=== PATIENT | female | born 1960 | race Caucasian/White ===

== ENCOUNTER 2020-10-20 11:43 | Emergency (ER) | payer BC ==
[~2020-10-20] VITALS: Ht 170.2 cm; Wt 60.0 kg
[~2020-10-20 11:43] MED LIST: CLIN-97 PO; HYDR-4383 PO; LEVO100T PO
[2020-10-20 12:41] VITALS: BP 132/89
[2020-10-20] MEDS ORDERED: AMOX-422 PO (13:20)
== END 2020-10-20 13:36 | disposition home or self-care (01) ==
LOC: ER 11:44
DX: J32.9 Chronic sinusitis, unspecified (principal); R05 Cough; R06.02 Shortness of breath; R09.89 Other specified symptoms and signs involving the circulatory and respiratory systems; Z20.828 Contact with and (suspected) exposure to other viral communicable diseases; E03.9 Hypothyroidism, unspecified; Z90.710 Acquired absence of both cervix and uterus; Z88.2 Allergy status to sulfonamides; Z88.5 Allergy status to narcotic agent; Z79.2 Long term (current) use of antibiotics; Z79.899 Other long term (current) drug therapy
CPT/HCPCS: 36415; 71045; 87635; 99284

== ENCOUNTER 2020-10-25 18:42 | Emergency (ER) | payer BC ==
[~2020-10-25] VITALS: Ht 170.2 cm; Wt 59.8 kg
[~2020-10-25 18:42] MED LIST changes: +AMOX-422 PO
[2020-10-25 19:51] VITALS: BP 152/103
[2020-10-25 20:28] LABS: EOSINOPHILS % (AUTO) 0.8 % (0-6); HEMATOCRIT 40.2 % (35.0-45.0); HEMOGLOBIN 13.9 g/dl (12.0-16.0); LYMPHOCYTES # (AUTO) 1.3 X10'3 (1.1-4.8); LYMPHOCYTES % (AUTO) 39.2 % (21-51); MEAN CORPUSCULAR HEMOGLOBIN 32.5 PG (27.0-31.0); MEAN CORPUSCULAR HGB CONC 34.6 g/dL (33.0-36.5); MEAN CORPUSCULAR VOLUME 93.9 FL (78-98); MEAN PLATELET VOLUME 7.3 FL (7.4-10.4); MONOCYTES # (AUTO) 0.3 X10'3 (0-0.9); MONOCYTES % (AUTO) 9.5 % (2-12); NEUTROPHILS # (AUTO) 1.7 X10'3 (1.8-7.7); NEUTROPHILS % (AUTO) 49.5 % (42-75); PLATELET COUNT 216 X10'3 (140-440); RED BLOOD COUNT 4.28 X10'6 (4.20-5.60); RED CELL DISTRIBUTION WIDTH 16.5 % (11.5-14.5); WHITE BLOOD COUNT 3.4 X10'3 (4.5-11.0)
[2020-10-25] MEDS ORDERED: BENZ-16 PO (20:33)
[2020-10-25] MEDS ORDERED: benzonatate 100mg capsule PO ONE (20:35)
[2020-10-25] MEDS: pseudoephedrine 30mg tablet PO ONE ×2 (20:36→20:40)
[2020-10-25 20:41] LABS: ANION GAP 8 (8-16); CHLORIDE 109 MMOL/L (99-107); GLUCOSE 110 MG/DL (70-104); POTASSIUM 3.1 MMOL/L (3.5-5.1); SODIUM 145 MMOL/L (135-145); TOTAL CARBON DIOXIDE 27.8 MMOL/L (24-32)
[2020-10-25 20:42] LABS: ALANINE AMINOTRANSFERASE 26 U/L (12-78); ALBUMIN 3.6 G/DL (3.4-5.0); ALBUMIN/GLOBULIN RATIO 1.3 (1.1-1.5); ALKALINE PHOSPHATASE 57 IU/L (46-116); ASPARTATE AMINO TRANSFERASE 25 U/L (10-37); BILIRUBIN,TOTAL 0.5 MG/DL (0.1-1.0); BLOOD UREA NITROGEN 14 MG/DL (7-18); BUN/CREATININE RATIO 22.2 (6.6-38.0); CALCIUM 8.5 MG/DL (8.5-10.1); CREATININE 0.63 MG/DL (0.40-0.90); TOTAL PROTEIN 6.3 G/DL (6.4-8.2); eGFR > 90 ML/MIN
== END 2020-10-25 20:45 | disposition home or self-care (01) ==
LOC: ER 18:46
DX: R07.89 Other chest pain (principal); R05 Cough; E07.89 Other specified disorders of thyroid; Z88.5 Allergy status to narcotic agent; Z88.1 Allergy status to other antibiotic agents
CPT/HCPCS: 36415; 71046; 80053; 83880; 84484; 85025; 93005; 99285

== ENCOUNTER 2025-04-09 06:05 | Observation (INO) | payer MEDICARE, OTHER ==
--- NOTE | 2025-04-01 13:37 | ELECTROCARDIOGRAPH REPORT ---
[facility] Test Date: 2025-04-01 Test Time: 13:34:38 Pat Name: BROOK DORSEY Department: [facility]-PRE-OP Patient ID: [id number] Room: Gender: F [employer]: HUBER : 1960 Requested By: WILLIAM RIVERA Order Number: [id number] Reading MD: Dr. Shiloh Eisenberg Measurements Intervals [place] Rate: 47 P: 77 RI: 178 QRS: 69 QRSD: 110 T: 62 QT: 465 QTc: 411 Interpretive Statements Sinus bradycardia Atrial premature complex Right atrial enlargement Consider right ventricular hypertrophy Electronically Signed On 04-02-2025 9:07:[address] Shiloh Eisenberg Please click the below link to view image of tracing.
[2025-04-01 13:53] LABS: BASOPHILS % (AUTO) 0.6 % (0-1); EOSINOPHILS # (AUTO) 0.1 X10'3 (0-0.9); EOSINOPHILS % (AUTO) 2.2 % (0-6); LYMPHOCYTES # (AUTO) 1.8 X10'3 (1.1-4.8); LYMPHOCYTES % (AUTO) 37.5 % (21-51); MEAN CORPUSCULAR HGB CONC 33.3 g/dL (33.0-36.5); MEAN PLATELET VOLUME 7.5 FL (7.4-10.4); MONOCYTES # (AUTO) 0.4 X10'3 (0-0.9); MONOCYTES % (AUTO) 7.2 % (2-12); NEUTROPHILS # (AUTO) 2.6 X10'3 (1.8-7.7); NEUTROPHILS % (AUTO) 52.5 % (42-75); PRE OP HEMATOCRIT 41.1 % (35.0-45.0); PRE OP HEMOGLOBIN 13.7 g/dL (12.0-16.0); PRE OP PLATELET COUNT 315 X10'3 (140-440); PRE OP WHITE BLOOD COUNT 4.9 10'3 (4.8-10.8); RED BLOOD COUNT 4.72 X10'6 (4.20-5.60); RED CELL DISTRIBUTION WIDTH 15.4 % (11.5-14.5)
[2025-04-01 14:03] LABS: PRE OP PROTIME 10.4 SECONDS (9.0-12.0)
[2025-04-01 14:06] LABS: ALBUMIN 4.1 G/DL (3.4-5.0); ALBUMIN/GLOBULIN RATIO 1.5 (1.1-1.5); ALKALINE PHOSPHATASE 64 IU/L (46-116); BLOOD UREA NITROGEN 9 MG/DL (7-18); BUN/CREATININE RATIO 12.7 (10.0-20.0); CALCIUM 9.4 MG/DL (8.5-10.1); CHLORIDE 108 MMOL/L (99-107); CREATININE 0.71 MG/DL (0.40-0.90); PRE OP ALT 20 U/L (30-65); PRE OP ANION GAP 6 (8-16); PRE OP AST 17 U/L (10-37); PRE OP BILIRUB, TOTAL 0.4 MG/DL (0.0-1.0); PRE OP GLUCOSE 105 MG/DL (70-104); PRE OP POTASSIUM 3.8 MMOL/L (3.4-5.1); PRE OP SODIUM 144 MMOL/L (135-145); TOTAL CARBON DIOXIDE 29.7 MMOL/L (24-32); TOTAL PROTEIN 6.9 G/DL (6.4-8.2); eGFR 83 ML/MIN
[2025-04-09] VITALS (20 sets, daily range): BP systolic 121–159; BP diastolic 63–83; PULSE 6–68; RESP 12–18; TEMP 96.9–98; O2SAT 96–100
[~2025-04-09] VITALS: Ht 170.2 cm; Wt 59.0 kg
[~2025-04-09 06:05] MED LIST changes: -AMOX-422 PO; +CALC-1215 PO; -CLIN-97 PO; +CYAN250010 PO; -HYDR-4383 PO; -LEVO100T PO; +LEVO88TA7 PO; +MULT-269 PO
[2025-04-09] MEDS: ceFAZolin 2gm in dextrose, iso 50 ML IV ONE (06:19)
[2025-04-09] MEDS: famotidine 20mg tablet PO ONE (06:50)
[2025-04-09] MEDS ORDERED: methylene blue (5mg/ml) 50mg/10ml ampul IV ONE (07:00)
[2025-04-09] MEDS ORDERED: BUPIVAcaine 2.5mg/ml inj 50ml vial (contains preservative) ONE ×2 (07:00→07:42)
[2025-04-09] MEDS ORDERED: BUPIVACAINE liposomal/PF 13.3 MG/ML 10mL vial IM ONE ×2 (07:00→07:43)
[2025-04-09] MEDS: scopolamine 1MG/72H patch 1 PATCH PATCH.TD.3 TD ONE (07:40)
[2025-04-09] MEDS ORDERED: midazolam 1 mg/ML 2ml injection ONE (07:48)
[2025-04-09] MEDS ORDERED: fentaNYL/PF 50MCG/1 ML 2ML syringe ONE ×2 (07:48→10:07)
[2025-04-09] MEDS ORDERED: dexamethasone sod phosphate 4mg/ml inj. ONE (07:49)
[2025-04-09] MEDS ORDERED: propofol inj 20 ML IV ONE (07:49)
[2025-04-09] MEDS ORDERED: ondansetron/PF 4mg/2ml inj ONE (07:49)
[2025-04-09] MEDS ORDERED: LIDOcaine 2% (20mg/ml) 5ml vial ONE (07:49)
[2025-04-09] MEDS ORDERED: acetaminophen 1,000mg/100ml IV 100 ML IV ONE (07:49)
[2025-04-09] MEDS ORDERED: labetalol 20mg/4ml (5mg/ml) syringe IV PRN (07:55)
[2025-04-09] MEDS ORDERED: hydrALAZINE 20mg/ml inj. IV PRN (07:55)
[2025-04-09] MEDS ORDERED: fentaNYL/PF 50MCG/1 ML 2ML syringe IV PRN ×2 (07:55)
[2025-04-09] MEDS ORDERED: morphine 4 MG/ML inj SYRINge IV PRN (07:55)
[2025-04-09] MEDS ORDERED: ondansetron/PF 4mg/2ml inj IV PRN (07:55)
[2025-04-09] MEDS ORDERED: sevoflurane 250ml liquid IH ONE (08:12)
[2025-04-09] MEDS: methylene blue (5mg/ml) 50mg/10ml ampul IV ONE (09:08)
[2025-04-09] MEDS ORDERED: ePHEDrine 50MG/ML INJ. ONE (09:27)
--- NOTE | 2025-04-09 10:03 | ANESTHESIA RECORDS ---
Nerve Block Providers to CC CC: WILLIAM RIVERA DO ~ Diagnosis: Nerve Block requested by: WILLIAM RIVERA DO Neuraxial/Peripheral Nerve Block requested for Post-operative analgesia by Physician above DIAGNOSIS: Post-operative pain. (Body Area) Shoulder: [ ] Arm: [ ] Hand: [ ] Hip: [ ] Knee: [ ] Ankle: [ ] Foot: [ ] Leg: [ ] Abdomen: [ ] Other: [____Bil Pec I,II blcks ] Post-operative pain expected to be/is inadequately managed by oral or IV medicines. Regional anesthetic expected to facilitate rehabilitation and/or discharge from facility. Other:[ ] Procedure Performed: Other: [place] PEC I,II blocks Time out Done?: Yes Time of Time out: 08:18 Procedure Details: PROCEDURE DETAILS: Risks, benefits and alternatives explained Informed consent obtained, and patient wishes to proceed Conscious sedation with indicated monitors Patient positioned, pertinent anatomy defined, sterile technique used Needle used: [ ] 3 1/8 inch Stimuplex Ultra 22ga [X ] 4 inch Stimuplex Ultra 20ga [ ] 6 inch Stimuplex Ultra 20ga [ ] 6 inch, Quikbloc over the needle catheter set 20ga [ ] 4 inch Quikbloc over the needle catheter set 20ga [ ]Other: [ ] Loss of twitch @ [ ]mA [X ] Single Injection [ ] Catheter Ultrasound Guidance Used: [X ] Yes [ ] No Attempts:[__1,1 ] Medicines injected: [ ]Clonidine Amt:[ ] [ ]Dexamethasone Amt:[ ] [ ]Ropivacaine Amt:[ ] [ X ]Bupivacaine Amt:[_0.25% 15 c.c on each side ] [ ]Lidocaine Amt:[ ] [X ]Exparel 1.33%:[__10 c.c on each side ] [ ]Epinephrine Amt[ ] [ ]Other: [ ] Intermittent aspiration during local anesthetic administration No symptoms of intraneural or intravenous injection Patient tolerated procedure well Comments Ultrasound examination of chest wall on each side from mid clavicular region, with Identification of sub clavian vessels, and 2nd rib. Later probe is moved down to see the 4th rib, serratus,Pectorralis minor,Major muscles, and facial planes are identified. Needle at 4th rib level between serattus/Pectoralis minor plane on each side and mix of bupevacaine exparel 15 c.c injected after negative aspirations. Facial seperation, spread is noted, images captured for documentation. Needle is withdrawn at the same level to Pectoralis Minor/Major inter pahse. 10 c.c local mix is injected on each side. spread is noted,Images captured for documentation. HOLLEY MCKINLEY MD April 09, 2025 10:03
[2025-04-09] MEDS ORDERED: proCHLORperazine 10 MG/2 ml inj IV PRN (10:15)
[2025-04-09] MEDS: ringers solution, lacted 1,000 ML IV SCH ×3 (11:40→15:43)
[2025-04-09] MEDS ORDERED: morphine 2 MG/ML inj. syringe IV PRN (11:45)
[2025-04-09] MEDS: morphine 2 MG/ML inj. syringe IV PRN (12:03)
--- NOTE | 2025-04-09 12:13 | OPERATIVE REPORT ---
Operative Report Providers to CC: WILLIAM RIVERA DO ~ Date of Procedure: April 09, 2025 Pre-Operative Diagnosis: right breast cancer Post-Operative Diagnosis SAME as PRE-Op Procedure Performed Bilateral simple mastectomy and right axillary sentinel lymph node biopsy Surgeon: Dr. William Rivera Research Associate [employer] techs Anesthesiologist: Jonathan Sainz Type of Anesthesia: General Findings: One sentinel lymph node right axilla Complications None Prosthetics\Implants used: None Estimated Blood Loss: Less than 30 mL Specimen Removed: Right breast mastectomy oriented short superior long lateral Left breast mastectomy oriented short superior long lateral Right axillary sentinel lymph node hot only Description of Procedure: Brittney is a 64-year-old female who was diagnosed with multifocal right breast cancer. She was seen and evaluated in my office and had a workup prior to surgery. After our lengthy discussion about the risks and benefits and alternatives to breast conservation and mastectomy she opted for mastectomy b ased on multifocal disease. She decided to do a contralateral mastectomy because of her lifestyle and being a caregiver for her she wanted no further follow up with mammograms. Informed consent was obtained and the procedures were agreed upon. Brittney had her nuclear medicine injection yesterday evening at [facility]. She presented this morning to the preoperative holding area and the shoulder was marked with my initials indicating that I would be performing right axillary sentinel lymph node biopsy. She had been seen by the anesthesiologist as well. SCDs were in place and antibiotics were hanging from the bedside. She was taken to the OR suite and placed on the table in supine position with the arms extended. General anesthesia was administered with an LMA. A pecs 1 and 2 block was also performed bilaterally. I used the gamma probe to detect the hot signal in the upper outer quadrant of the right breast and in the lower axilla. I also injected 3 mL of methylene blue dye at the 9 o'clock position subareolar and massaged for 5 minutes. The patient was prepped and draped in a sterile fashion a time-out was performed and agreed upon. I made markings on both breast prior to the start of surgery. I started with the left breast. I made an incision with the 10 blade around the nipple-areolar complex just medial to the sternum and far laterally to the anterior axillary line. I further extended this incision into the breast tissue with the cutting on the cautery. I raised the superior flap with cat claw retractors. I created this flap by using the cautery and dissecting in the subcutaneous plane medial and laterally down to the inferior aspect of the clavicle. Once the flap was completely created I then created the inferior flap which was what smaller. It was raised with cat claw retractors as well as I dissected down in the subcutaneous plane to the chest wall. Once the superior and inferior flaps were created. Hemostasis was achieved with Bovie electrocautery. I dissected the breast and fascia from the chest wall in the superior to inferior and lateral to medial directions. Once the breast was completely excised. It was oriented with short stitch superior long suture lateral and placed off the field in formalin. Hemostasis was achieved with Bovie electrocautery and I irrigated the cavity. I then used 10 mL of Vistaseal and sprayed it throughout the cavity to assist with postoperative hemostasis. I used a 15 blade in the lower outer quadrant to create a small incision with passage of a tonsil to pull the 15 mm HEATHER drain through. It was secured in place with 3-0 nylon suture. The deep dermal layer was closed with 3-0 Vicryl interrupted sutures along with the INSORB stapling device. I closed the skin with 4-0 Monocryl running subcuticular stitch. Now turned my attention to the right mastectomy and sentinel lymph node biopsy. I made an incision in the right breast with the 10 blade around the nipple- areolar complex just medial to the sternum and far laterally to the anterior axillary line. I further extended this incision into the breast tissue with the cutting on the cautery. I raised the superior flap with cat claw retractors. I created this flap by using the cautery and dissecting in the subcutaneous plane medial and laterally down to the inferior aspect of the clavicle. Once the flap was completely created I then created the inferior flap which was what smaller. It was raised with cat claw retractors as well as I dissected down in the subcutaneous plane to the chest wall. Once the superior and inferior flaps were created. Hemostasis was achieved with Bovie electrocautery. I dissected the breast and fascia from the chest wall in the superior to inferior and lateral to medial directions. Once the breast was completely excised. It was oriented with short stitch superior long suture lateral and placed off the field in formalin. I then performed the right axillary sentinel lymph node biopsy. I made an incision in the axillary fascia just lateral to the pectoralis major muscle. Once the space was opened I used retractors for visualization purposes. I scanned the axilla and a hot spot was noted. I retracted this tissue with a tonsil clamp and identified the hot signal. There was no evidence of blue dye. This node was dissected free with cautery and removed from the cavity without injury to any neurovascular structures. The count was 269. This lymph node was placed in formalin off the field and sent for permanent evaluation with the other two specimens. I scanned the axilla and the counts were minimal. Hemostasis was achieved with Bovie electrocautery. Prior to closing the axillary space with 3-0 Vicryl interrupted suture, I irrigated the cavities. I used 10 mL of Vistaseal and sprayed it throughout the cavity to assist with postoperative hemostasis. I used a 15 blade in the lower outer quadrant to create a small incision with passage of a tonsil to pull the 15 mm HEATHER drain through. It was secured in place with 3-0 nylon suture. The deep dermal layer was closed with 3-0 Vicryl interrupted sutures along with the INSORB stapling device. I closed the skin with 4-0 Monocryl running subcuticular stitch. Dermabond glue was placed on both incisions sterile dressings, were applied to both incisions. Fluff dressings and ABDs to the chest wall. The patient was wrapped with two 6 in Wagner wraps. HEATHER drain bulbs were secure. All needle and sponge counts were correct and patient tolerated procedure well and sent to recovery in stable condition Counts repoted as correct: Yes WILLIAM RIVERA DO April 09, 2025 12:13
[2025-04-09] MEDS: aprepitant 40mg capsule PO ONE (15:43)
[2025-04-09] MEDS: ceFAZolin 2gm in dextrose, iso 50 ML IV SCH (16:08)
[2025-04-09] MEDS: acetaminophen w/codeine (30MG) #3 tablet PO PRN (17:17)
[2025-04-10 02:00] VITALS: BP 133/69; PULSE 62; RESP 14; TEMP 97.6; O2SAT 95
[2025-04-10 04:58] LABS: BASOPHILS % (AUTO) 0.3 % (0-1); EOSINOPHILS % (AUTO) 0.2 % (0-6); HEMATOCRIT 33.8 % (35.0-45.0); HEMOGLOBIN 11.5 g/dl (12.0-16.0); LYMPHOCYTES % (AUTO) 21.4 % (21-51); MEAN CORPUSCULAR HEMOGLOBIN 29.8 PG (27.0-31.0); MEAN CORPUSCULAR HGB CONC 34.1 g/dL (33.0-36.5); MEAN CORPUSCULAR VOLUME 87.2 FL (78-98); MEAN PLATELET VOLUME 7.3 FL (7.4-10.4); MONOCYTES # (AUTO) 0.9 X10'3 (0-0.9); MONOCYTES % (AUTO) 9.6 % (2-12); NEUTROPHILS # (AUTO) 6.4 X10'3 (1.8-7.7); NEUTROPHILS % (AUTO) 68.5 % (42-75); PLATELET COUNT 295 X10'3 (140-440); RED BLOOD COUNT 3.87 X10'6 (4.20-5.60); RED CELL DISTRIBUTION WIDTH 15.3 % (11.5-14.5); WHITE BLOOD COUNT 9.3 X10'3 (4.5-11.0)
[2025-04-10 06:00] VITALS: BP 160/79; PULSE 79; RESP 16; TEMP 97.7; O2SAT 96
[2025-04-10 08:00] VITALS: RESP 16; O2SAT 96
[2025-04-10 08:09] VITALS: BP 146/88; PULSE 66; RESP 16; TEMP 98.2; O2SAT 97
--- NOTE | 2025-04-10 09:48 | PROGRESS NOTE ---
Progress Note Dictate Providers to CC CC: WILLIAM RIVERA DO ~ Progress Note: Postop day #1 Status post bilateral simple mastectomy and right axillary sentinel lymph node biopsy Central Line/PICC still needed: N\A Antibiotic Ordered?: Yes If Yes, Indications: Surgical prophylaxis If Yes, Anticipated Duration: Two postop doses MRSA Education MRSA Education Provided to pt: No Subjective Subjective Tolerated diet, denies pain, ambulates to the bathroom. Had discomfort in the right axilla secondary to the pressure dressing. Objective Vitals Vital Signs Date Time Temp Pulse Resp B/P (MAP) Pulse Ox O2 Delivery O2 Flow Rate FiO2 04/10/25 09:37 Room Air 04/10/25 08:09 98.2 66 16 146/88 (107) 97 04/10/25 08:00 0.0 04/10/25 05:25 97 Lab Results: 04/10/25 0449 Objective Alert and oriented x3, no acute distress HEENT: Normal cephalic atraumatic Chest: Wagner wrap intact with bandages beneath, slight bruising anterior lateral chest wall, no evidence of hematoma or swelling. Bilateral HEATHER drains serosanguineous 15 mL in each drain. 15 mL in the left and 30 mL of on the right overnight Extremities: No cyanosis clubbing or edema SCDs were on and working Coagulation Studies Laboratory Tests Test 04/01/25 13:42 Prothrombin Time 10.4 SECONDS (9.0-12.0) INR International Normalized Ratio 1.0 INR Activated Partial Thromboplast Time 29 SECONDS (22-32) Counseling Services Smoking & Tobacco Cessation: N/A Advance Care Planning Advanced Care planning: Add on additional 30 min Problem\Assessment\Plan Problems/Diagnosis: (1) Breast cancer, right Assessment & Plan: -postop day #1, status post bilateral simple mastectomy and right axillary sentinel lymph node biopsy -vital signs were stable and HEATHER drain outputs are adequate -discharged home today -teach HEATHER drain care -prescribed Calder and Keflex for home -follow up with Dr. Rivera next week for HEATHER drain assessment and pulling. Dr. Rivera office will notify her. Additionally two week postop appointment with Dr. Rivera. She has discharge instructions at home and is to call Dr. Rivera with any questions or concerns Problem Qualifiers (1) Breast cancer, right: Qualified Codes: C50.811 - Malignant neoplasm of overlapping sites of right female breast; Z17.0 - Estrogen receptor positive status [ER+] WILLIAM RIVERA DO April 10, 2025 09:48
--- NOTE | 2025-04-10 09:52 | DISCHARGE SUMMARY ---
Discharge Summary Providers to CC CC: WILLIAM RIVERA DO ~ Discharge Summary Assessment postop day #1, status post bilateral simple mastectomy and right axillary s entinel lymph node biopsy Admission Diagnosis: right breast cancer Hospital Course DATE OF ADMISSION: DATE OF DISCHARGE: Discharge Diagnosis\Comment: Right breast cancer multifocal Operations\Procedures: bilateral simple mastectomy and right axillary sentinel lymph node biopsy Consultants: None Complications: None Condition on DC: Stable Discharge Summary: Brittney is a 64-year-old female who was diagnosed with multifocal right breast cancer. Based on our discussions and the full assessment of her diagnosis she decided upon a right mastectomy and additionally a contralateral mastectomy for symmetry. She had a bilateral simple mastectomy right axillary sentinel lymph node biopsy yesterday without any complication on 04/09/2025. She was taken to recovery in stable condition,and subsequently to the floor. Her overnight course was unremarkable. She did complain of right axillary discomfort for which that was secondary to the pressure dressing. She tolerated her diet, ambulated and did not require much pain medication. She had Tylenol this morning. She has no other complaints and will be discharged home today. She will follow up with Dr. Rivera next week to remove the HEATHER drains. 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 She has been prescribed Nikolai and Keflex. His she has any questions or concerns she is to notify Dr. Rivera office where Dr. Rivera will be available day or night. *Problems/Diagnosis: (1) Breast cancer, right Assessment & Plan: -postop day #1, status post bilateral simple mastectomy and right axillary sentinel lymph node biopsy -vital signs were stable and HEATHER drain outputs are adequate -discharged home today -teach HEATHER drain care -prescribed Nikolai and Keflex for home -follow up with Dr. Rivera next week for HEATHER drain assessment and pulling. Dr. Rivera office will notify her. Additionally two week postop appointment with Dr. Rivera. She has discharge instructions at home and is to call Dr. Rivera with any questions or concerns Total Time Spent on D/C: > 30 Minutes Problem Qualifiers (1) Breast cancer, right: Qualified Codes: C50.811 - Malignant neoplasm of overlapping sites of right female breast; Z17.0 - Estrogen receptor positive status [ER+] WILLIAM RIVERA DO April 10, 2025 09:52
== END 2025-04-10 11:00 | disposition home or self-care (01) ==
LOC: PAS 06:05 → PACU 11:43 → SUR 3N 12:33
PROVIDERS: ADMIT Surgery; ATTEND Surgery
DX: C50.211 Malignant neoplasm of upper-inner quadrant of right female breast (principal); C50.911 Malignant neoplasm of unspecified site of right female breast; D64.9 Anemia, unspecified; R79.1 Abnormal coagulation profile; Z79.899 Other long term (current) drug therapy; Z98.890 Other specified postprocedural states
CPT/HCPCS: 19303; 38525; 38792; 80053; 82948; 85610; 85730; 86870; 86885; 86900; 86901; 93005; 96365; 96366; 96375; A4215; A4618; A6212; A6446; A7000; G0378; J0666; J0690; J3490; J7120; Q9968; 36415; 85025; 86902; 86905; 87081; A6253; A6258; A6449; C9250; J0131; J1100; J2003; J2250; J2270; J2405; J2704; J3010